=== PATIENT | male | born 1945 | race Two or more races ===

== ENCOUNTER 2017-07-25 16:11 | Observation (INO) | payer MEDICARE ==
[~2017-07-25] VITALS: Ht 162.6 cm; Wt 90.7 kg
[2017-07-25 16:54] LABS: Basophils # (auto) 0.2 uL; Basophils % (auto) 2.2 % (0.0-2.0); Eosinophils # (auto) 0.7 uL; Eosinophils % (auto) 8.6 % (0.0-7.0); Hemoglobin 10.5 g/dL (13.5-17.5); Lymphocytes # (auto) 3.2 uL; Lymphocytes % (auto) 36.7 % (10.0-50.0); Mean Corpuscular Hemoglobin 29.3 pg (28.0-32.0); Mean Corpuscular Hgb Conc. 32.8 g/dL (32.0-36.0); Mean Corpuscular Volume 89.5 fL (80.0-100.0); Monocytes # (auto) 0.4 uL; Monocytes % (auto) 5.2 % (0.0-12.0); Neutrophils # (auto) 4.1 uL; Neutrophils % (auto) 47.3 % (37.0-80.0); Nucleated Red Blood Cells % 0.1 %; Platelet Count (auto) 241 10^3/uL (140-450); Red Cell Distribution Width 15.6 % (11.6-16.0); White Blood Cell 8.6 10^3/uL (4.4-10.8)
[2017-07-25 17:04] LABS: BUN/Creatinine Ratio 12.2; Potassium 3.6 mmol/L (3.5-5.1)
[2017-07-25] MEDS ORDERED: HEPARIN IN NS 1000U/500ML (2UNIT/ML) 500 ML BAG IV ONE (21:30)
[2017-07-26 04:48] VITALS: BP 135/81
== END 2017-07-26 11:14 | disposition short-term general hospital (02) | DRG 314 ==
LOC: ER 16:21 → OVERFLOW 21:17 → ER 07-26 11:14
PROVIDERS: ADMIT Family Medicine; ATTEND Family Medicine
DX: T82.49XA Other complication of vascular dialysis catheter, initial encounter (principal); N18.6 End stage renal disease; I12.0 Hypertensive chronic kidney disease with stage 5 chronic kidney disease or end stage renal disease; E11.22 Type 2 diabetes mellitus with diabetic chronic kidney disease; Z99.2 Dependence on renal dialysis; Z82.49 Family history of ischemic heart disease and other diseases of the circulatory system; Z87.891 Personal history of nicotine dependence; Y83.9 Surgical procedure, unspecified as the cause of abnormal reaction of the patient, or of later complication, without mention of misadventure at the time of the procedure
CPT/HCPCS: 36415; 71010; 80048; 85025; 99285; G0378; J1642